=== PATIENT | male | born 2000 | race Caucasian/White ===

== ENCOUNTER 2021-03-05 00:07 | Emergency (ER) | payer OTHER ==
[~2021-03-05 00:07] MED LIST: BENTYL 20MG TAB20 MG PO; ZOFRAN ODT 4 MG4 MG PO
== END 2021-03-05 02:00 | disposition left against medical advice (07) ==
LOC: ER1 00:07
DX: R00.0 Tachycardia, unspecified (principal); R50.9 Fever, unspecified; J45.909 Unspecified asthma, uncomplicated; Z90.49 Acquired absence of other specified parts of digestive tract; Z91.018 Allergy to other foods
CPT/HCPCS: 71045; 99284